=== PATIENT | female | born 1975 | race African-American/Black ===

== ENCOUNTER → 2017-11-30 | Day surgery (SDC) | payer OTHER ==
--- NOTE | 2017-12-02 09:14 | PATH ---
Surgical Pathology Report Patient Name: GONZALO FARIAS [facility]. Rec. #: [id number] /Age/Gender: 1975 (Age: 42) / F Account: [id number] Location: [facility] Taken: 11/30/2017 Received: 11/30/2017 Reported: 12/02/2017 Physicians: Hector Pérez M.D. Specimen(s) Received RIGHT BREAST 12:00 0.4CM Clinical History Nonpalpable lesion Ultrasound findings: Suspicious Final Diagnosis 0.4 CM LESION IN RIGHT BREAST 12:00 POSITION, ULTRASOUND GUIDED CORE BIOPSY: BREAST TISSUE WITH STROMAL FIBROSIS. Electronically Signed Sang Morrissey M.D. Gross Description Received in formalin labeled "right 12:00," are 6 pascual-yellow, cylindrical portions of fibroadipose tissue ranging from 0.2-1.7 cm in length and averaging 0.1 cm in diameter. The specimens are submitted in toto in one cassette. Time to formalin fixation: Less than one minute Total formalin fixation time: Approximately 7 hours. /11/30/2017 saudi/11/30/2017
== END | disposition home or self-care (01) ==
LOC: JRADUS-SUR 09:39
PROVIDERS: ATTEND Obstetrics & Gynecology
PROC: 0HBT3ZX Excision of Right Breast, Percutaneous Approach, Diagnostic (ICD-10-PCS; principal; 2017-11-30)
DX: N60.31 Fibrosclerosis of right breast (principal)
CPT/HCPCS: 19083; 87899; 88305-TC; A4648

== ENCOUNTER 2019-05-13 23:44 | Emergency (ER) | payer OTHER ==
[2019-05-13 23:55] VITALS: BP 116/74; PULSE 52; TEMP 97.8; BMI 26.6
[2019-05-14 01:58] LABS: HEMATOCRIT 35.3 % (32.4-45.2); HEMOGLOBIN 11.6 GM/dL (10.7-15.3); MCH 24.4 pg (25.7-33.7); MCHC 32.8 g/dl (32.0-36.0); MEAN CELL VOLUME 74.3 fl (80-96); MEAN PLT VOLUME 7.7 fl (7.5-11.1); PLATELET COUNT 387 K/MM3 (134-434); RBC 4.75 M/mm3 (3.60-5.2); RDW 18.4 % (11.6-15.6); WHITE BLOOD COUNT 5.3 K/mm3 (4.0-10.0)
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
[2019-05-14 02:31] LABS: BILIRUBIN,TOTAL 0.3 mg/dL (0.2-1); BLOOD UREA NITROGEN 8.6 mg/dL (7-18); CALCIUM 9.4 mg/dL (8.5-10.1); CREATININE 0.5 mg/dL (0.55-1.3); POTASSIUM 4.3 mmol/L (3.5-5.1)
--- NOTE | 2019-05-14 02:35 | PDOC ---
History of Present Illness - General Chief Complaint: Alcohol intoxication Stated Complaint: INTOX Time Seen by Provider: 05/14/19 00:25 History Source: Patient Exam Limitations: No Limitations - History of Present Illness Initial Comments: 44 yo F with a hx of HTN presents to the emergency department with alcohol intoxication. Per triage summary, the patient was brought in by the cabinet mounter because of concerns she was too drunk. The patient was evaluated. Per the patient, she was drinking with her friends to celebrate her friend's birthday. She states she has "a few shots of vodka". She is alert and oriented x3 and denies trauma prior to presentation while drinking. Currently has no symptomatic complaint. Denies the following: fevers, chills, SOB, chest pain, nausea, vomiting, dysuria, hematuria, diarrhea, hematochezia, headache, visual disturbance, and leg pain/swelling. Past History - Past Medical History Allergies/Adverse Reactions: Allergies Allergy/AdvReac Type Severity Reaction Status Date / Time No Known Allergies Allergy Verified 05/13/19 23:55 Home Medications: Ambulatory Orders Amlodipine Besylate/Benazepril [Lotrel 5-40 mg Capsule] 1 each PO DAILY Levothyroxine [Synthroid -] 125 mcg PO DAILY 05/14/16 Cholecalciferol (Vitamin D3) [Vitamin D3 -] 400 unit PO WEEKLY 05/15/16 Iron 18 mg PO DAILY 05/15/16 Anemia: No Asthma: No Cancer: No Cardiac Disorders: No CVA: No COPD: No CHF: No Dementia: No Diabetes: No GI Disorders: No Disorders: No HTN: Yes Hypercholesterolemia: No Liver Disease: No Seizures: No Thyroid Disease: Yes - Psycho Social/Smoking Cessation Hx Smoking History: Unknown if ever smoked Have you smoked in the past 12 months: No Number of Cigarettes Smoked Daily: 2 Information on smoking cessation initiated: No 'Breaking Loose' booklet given: 05/14/16 Hx Alcohol Use: No Drug/Substance Use Hx: Yes Substance Use Type: Alcohol Review of Systems - Review of Systems Able to Perform ROS?: Yes Is the patient limited Persian proficient: No Constitutional: No: Chills, Diaphoresis, Fever, Weakness HEENTM: No: Eye Pain, Ear Pain, Nose Pain, Throat Pain, Mouth Pain Respiratory: No: Cough, Shortness of Breath, Hemoptysis Cardiac (ROS): No: Chest Pain, Lightheadedness, Palpitations, Syncope, Chest Tightness ABD/GI: No: Constipated, Diarrhea, Nausea, Rectal Bleeding, Vomiting, Tarry Stools : No: Dysuria, Flank Pain, Hematuria Musculoskeletal: No: Back Pain, Joint Pain, Neck Pain Integumentary: No: Bruising, Erythema, Rash Neurological: No: Headache, Numbness, Tingling, Tremors Endocrine: No: Unexplained Weight Gain, Unexplained Weight Loss Hematologic/Lymphatic: No: Anemia *Physical Exam - Vital Signs Last Vital Signs Temp Pulse Resp BP Pulse Ox 97.8 F 52 L 16 116/74 99 05/13/19 23:52 05/13/19 23:52 05/13/19 23:52 05/13/19 23:52 05/13/19 23:52 - Physical Exam General Appearance: Yes: Nourished, Appropriately Dressed, Alcohol on Breath, Intoxicated. No: Apparent Distress HEENT: positive: EOMI, DEJA, Normal ENT Inspection, Normal Voice, Symmetrical, TMs Normal, Pharynx Normal, Hearing Grossly Normal. negative: Pale Conjunctivae , Scleral Icterus (R), Scleral Icterus (L), Muffled/Hoarse voice, Pharyngeal Erythema, Tonsillar Exudate, Excessive drooling Neck: positive: Trachea midline, Supple. negative: Tender, Lymphadenopathy (R) , Lymphadenopathy (L), Tender lateral, Tender midline Respiratory/Chest: positive: Lungs Clear, Normal Breath Sounds. negative: Chest Tender, Respiratory Distress, Accessory Muscle Use, Crackles, Rales, Rhonchi, Stridor, Wheezing, Hyperresonant Cardiovascular: positive: Regular Rhythm, Regular Rate, S1, S2. negative: Systolic Murmur Gastrointestinal/Abdominal: positive: Normal Bowel Sounds, Flat, Soft. negative : Tender, Distended, Guarding, Rebound Lymphatic: negative: Adenopathy Musculoskeletal: positive: Normal Inspection. negative: CVA Tenderness, Vertebral Tenderness Extremity: positive: Normal Capillary Refill, Normal Inspection, Normal Range of Motion. negative: Tender, Swelling, Calf Tenderness Integumentary: positive: Normal Color, Dry, Warm. negative: Swelling, Ecchymosis Neurologic: positive: salvage cutter II-XII NML intact, Fully Oriented, Alert, Normal Mood/ Affect, Normal Response, Motor Strength 5/5. negative: EOM Palsy, Facial Droop , Sensory Deficit ED Treatment Course - LABORATORY CBC & Chemistry Diagram: 05/14/19 01:37 05/14/19 01:37 - ADDITIONAL ORDERS Additional order review: Laboratory Results 05/14/19 05/14/19 05/14/19 01:37 01:37 01:37 Sodium 139 Potassium 4.3 Chloride 104 Carbon Dioxide 27 Anion Gap 9 BUN 8.6 Creatinine 0.5 L Est GFR (CKD-EPI)AfAm 136.42 Est GFR (CKD-EPI)NonAf 117.71 Random Glucose 99 Calcium 9.4 Total Bilirubin 0.3 AST 20 ALT 25 Alkaline Phosphatase 72 Total Protein 8.0 Albumin 4.0 Serum , Qual Negative Alcohol, Quantitative 223.8 H 05/14/19 01:37 RBC 4.75 MCV 74.3 L MCHC 32.8 RDW 18.4 H MPV 7.7 Medical Decision Making - Medical Decision Making 44 yo F with a hx of HTN presents to the emergency department with alcohol intoxication. Per triage summary, the patient was brought in by the cabinet mounter because of concerns she was too drunk. Initial vitals. Initial Vital Signs Temp Pulse Resp BP Pulse Ox 97.8 F 52 L 16 116/74 99 05/13/19 23:52 05/13/19 23:52 05/13/19 23:52 05/13/19 23:52 05/13/19 23:52 Work up: ddx: patient alcohol intoxicated. will obtain basic labs and alcohol level. no concerns for trauma; physical exam benign. Laboratory Tests 05/14/19 05/14/19 05/14/19 01:37 01:37 01:37 WBC 5.3 RBC 4.75 Hgb 11.6 Hct 35.3 MCV 74.3 L MCH 24.4 L D MCHC 32.8 RDW 18.4 H Plt Count 387 D MPV 7.7 Sodium 139 Potassium 4.3 Chloride 104 Carbon Dioxide 27 Anion Gap 9 BUN 8.6 Creatinine 0.5 L Est GFR (CKD-EPI)AfAm 136.42 Est GFR (CKD-EPI)NonAf 117.71 Random Glucose 99 Calcium 9.4 Total Bilirubin 0.3 AST 20 ALT 25 Alkaline Phosphatase 72 Total Protein 8.0 Albumin 4.0 Serum , Qual Alcohol, Quantitative 223.8 H 12/07/19 01:37 WBC RBC Hgb Hct MCV MCH MCHC RDW Plt Count MPV Sodium Potassium Chloride Carbon Dioxide Anion Gap BUN Creatinine Est GFR (CKD-EPI)AfAm Est GFR (CKD-EPI)NonAf Random Glucose Calcium Total Bilirubin AST ALT Alkaline Phosphatase Total Protein Albumin Serum , Qual Negative Alcohol, Quantitative Patient was reassessed and deemed to be clinically sober for discharge. Patient was able to ambulate on her own volition. Dispo: Discharge Discharge - Discharge Information Problems reviewed: Yes Clinical Impression/Diagnosis: Acute alcohol intoxication Disposition: HOME - Follow up/Referral - Patient Discharge Instructions - Post Discharge Activity
== END 2019-05-14 02:36 | disposition home or self-care (01) ==
LOC: JER 23:44
DX: F10.120 Alcohol abuse with intoxication, uncomplicated (principal); Y90.7 Blood alcohol level of 200-239 mg/100 ml
CPT/HCPCS: 36415; 80053; 80307; 84703; 85027; 99281-25

== ENCOUNTER 2020-02-21 20:58 | Emergency (ER) | payer OTHER ==
[2020-02-21 21:28] VITALS: BP 163/82; PULSE 59; TEMP 98.8; BMI 23.0
--- NOTE | 2020-02-21 22:46 | PDOC ---
*Physical Exam - Vital Signs Last Vital Signs Temp Pulse Resp BP Pulse Ox 98.8 F 59 L 20 163/82 99 02/21/20 21:20 02/21/20 21:20 02/21/20 21:20 02/21/20 21:20 02/21/20 21:20 Medical Decision Making - Medical Decision Making 02/21/20 22:46 Patient seen by the advanced practice provider under my supervision. Ancillary testing reviewed as necessary. I agree with plan as outlined by the advanced practice provider. Discharge - Follow up/Referral Referrals: Mahendra Majano MD [Primary Care Provider] - - Patient Discharge Instructions - Post Discharge Activity
--- NOTE | 2020-02-21 23:14 | PDOC ---
History of Present Illness - General Chief Complaint: Blood Pressure Problem Stated Complaint: BLOOD PRESSURE PROBLEM Time Seen by Provider: 02/21/20 22:41 - History of Present Illness Initial Comments: 02/21/20 23:15 44 year old female c/o elevated bloood pressure reading after use of tetracycline for acne. Patient reports that she has been checking her blood pressure constantly. Patient is currently on Norvasc patient was seen for same complaint by Dr. Dexter and was started on spironolactone. Patient reports no significant change in her blood pressure she was unable to reach her PCP due to blood pressure reading 160s over 90. Denies dizziness, chest pain, nausea, vomiting, abdominal pain. Patient reports slight headache 02/22/20 04:46 Past History - Medical History Allergies/Adverse Reactions: Allergies Allergy/AdvReac Type Severity Reaction Status Date / Time No Known Allergies Allergy Verified 05/13/19 23:55 Home Medications: Ambulatory Orders Amlodipine Besylate/Benazepril [Lotrel 5-40 mg Capsule] 1 each PO DAILY 05/14/16 Levothyroxine [Synthroid -] 125 mcg PO DAILY 05/14/16 Cholecalciferol (Vitamin D3) [Vitamin D3 -] 400 unit PO WEEKLY 05/15/16 Iron 18 mg PO DAILY 05/15/16 Anemia: No Asthma: No Cancer: No Cardiac Disorders: No CVA: No COPD: No CHF: No DVT: No Dementia: No Diabetes: No Dialysis: No GI Disorders: No Disorders: No HTN: Yes Hypercholesterolemia: No Liver Disease: No Seizures: No Thyroid Disease: Yes - Reproductive History Is Patient Now?: No - Psycho-Social/Smoking History Smoking History: Current some day smoker Have you smoked in the past 12 months: No Number of Cigarettes Smoked Daily: 2 Information on smoking cessation initiated: No 'Breaking Loose' booklet given: 05/14/16 - Substance Abuse Hx (Audit-C & DAST Scrn) How often the patient has a drink containing alcohol: Monthly or less Score: In Men: 4 or > Positive; In Women: 3 or > Positive: 1 Screen Result (Pos requires Nsg. Audit-10AR): Negative Review of Systems - Review of Systems Able to Perform ROS?: Yes Is the patient limited Peruvian proficient: No Constitutional: No: Symptoms Reported, See HPI, Chills, Diaphoresis, Fever, Loss of Appetite, Malaise, Night Sweats, Weakness, Weight Stable, Unintentional Wgt. Loss, Unexplained wgt Loss, Other Neurological: Yes: Headache. No: Symptoms reported, See HPI, Numbness, Paresthesia, Pre-Existing Deficit, Seizure, Tingling, Tremors, Weakness, Unsteady Gait, Ataxia, Dizziness, Other *Physical Exam - Vital Signs Last Vital Signs Temp Pulse Resp BP Pulse Ox 98.8 F 59 L 20 163/82 99 02/21/20 21:20 02/21/20 21:20 02/21/20 21:20 02/21/20 21:20 02/21/20 21:20 - Physical Exam General Appearance: Yes: Appropriately Dressed Respiratory/Chest: positive: Lungs Clear, Normal Breath Sounds Gastrointestinal/Abdominal: positive: Normal Bowel Sounds, Soft. negative: Tender Extremity: positive: Normal Capillary Refill, Normal Inspection, Normal Range of Motion Integumentary: positive: Normal Color, Dry, Warm Neurologic: positive: religious educator II-XII NML intact, Fully Oriented, Alert, Normal Mood/Affect, Normal Response, Motor Strength 5/5 Medical Decision Making - Medical Decision Making Hypertension P: Blood pressure diary recommended Prompt PCP follow-up recommended. Patient reports that she will be following up with Dr. Majano tomorrow.strict return precautions also reviewed with patientstill Discharge - Discharge Information Problems reviewed: Yes Clinical Impression/Diagnosis: Hypertension Qualifiers: Hypertension type: essential hypertension Qualified Code(s): I10 - Essential (primary) hypertension Condition: Stable Disposition: HOME - Follow up/Referral Referrals: Mahendra Majano MD [Primary Care Provider] - Call tomorrow - Patient Discharge Instructions Patient Printed Discharge Instructions: DI for High Blood Pressure Additional Instructions: Continue writing your blood pressure readings at home. Continue your high antihypertensive medication at home Follow-up with your primary care doctor tomorrow. Return to the emergency room for any worsening symptoms worsening headache worsening chest pain - Post Discharge Activity
== END 2020-02-21 23:23 | disposition home or self-care (01) ==
LOC: JER 20:58
DX: I10 Essential (primary) hypertension (principal)
CPT/HCPCS: 99282-25

== ENCOUNTER → 2020-08-30 | Day surgery (SDC) | payer OTHER | END | disposition home or self-care (01) | LOC: FMAMMOTONE 10:28 | PROVIDERS: ATTEND Obstetrics & Gynecology | PROC: 0H9T3ZX Drainage of Right Breast, Percutaneous Approach, Diagnostic (ICD-10-PCS; principal; 2020-08-30) | DX: N60.91 Unspecified benign mammary dysplasia of right breast (principal); N60.81 Other benign mammary dysplasias of right breast | CPT/HCPCS: 19081; 76098-TC-FY; 88305-TC ==

== ENCOUNTER 2023-06-11 04:23 | Inpatient (IN) | payer OTHER ==
[2023-06-03 12:57] VITALS: BMI 23.2
[2023-06-11] MEDS ORDERED: ceFAZolin SODIUM 1 GM VIAL ONE ×2 (06:11→07:56)
[2023-06-11] MEDS ORDERED: CEFAZOLIN 2 GM in DEXTROSE 5%-WATER 100 ML IVPB ONE (06:14)
[2023-06-11] MEDS ORDERED: PHENAZOPYRIDINE HCL 100 MG TABLET (FP) PO ONE (06:14)
[2023-06-11] MEDS ORDERED: TRANEXAMIC ACID 1000 MG/10 ML VIAL IVPUSH ONE (06:14)
[2023-06-11] MEDS ORDERED: ACETAMINOPHEN 500 MG TABLET (FP) PO ONE (06:14)
[2023-06-11] MEDS ORDERED: ONDANSETRON 4 MG/2 ML VIAL IVPUSH PRN ×2 (07:51→10:22)
[2023-06-11] MEDS ORDERED: PROMETHAZINE HCL 25 MG/1 ML VIAL IVPB PRN (07:51)
[2023-06-11] MEDS ORDERED: HYDROmorphone HCl 2 MG/ML VIAL ONE (07:55)
[2023-06-11] MEDS ORDERED: SUGAMMADEX SODIUM 200 MG/2 ML VIAL ONE (07:55)
[2023-06-11] MEDS ORDERED: ROCURONIUM BROMIDE 50 MG/5 ML SYRINGE ONE (07:55)
[2023-06-11] MEDS ORDERED: MIDAZOLAM HCL 2 MG/2 ML SINGLE DOSE VIAL ONE (07:55)
[2023-06-11] MEDS ORDERED: PROPOFOL 20 ML ONE (07:55)
[2023-06-11] MEDS ORDERED: LIDOCAINE HCL/PF 2% SDV 5ML VIAL ONE (07:56)
[2023-06-11] MEDS ORDERED: DEXAMETHASONE SOD PHOSPHATE 4 MG/1 ML VIAL ONE (07:56)
[2023-06-11] MEDS ORDERED: HEPARIN NA (PORCINE) 5,000 UNITS/ML 1ML VIAL ONE (08:06)
[2023-06-11] MEDS ORDERED: TRANEXAMIC ACID 1000 MG/10 ML VIAL ONE (08:48)
[2023-06-11] MEDS ORDERED: ceFAZolin SODIUM 1 GM VIAL IVPB ONE (08:50)
[2023-06-11] MEDS ORDERED: BUPIVACAINE HCL/PF 0.5% (5MG/ML) 10 ML VIAL IJ ONE (08:56)
[2023-06-11] MEDS ORDERED: KETOROLAC TROMETHAMINE 30 MG/1 ML VIAL ONE (08:57)
[2023-06-11] MEDS ORDERED: ACETAMINOPHEN INJECTION 100 ML IVPB ONE (08:57)
[2023-06-11] MEDS ORDERED: SEVOFLURANE 250 ML BTL ONE (08:57)
[2023-06-11] MEDS ORDERED: BISACODYL 5 MG TABLET.DR (FP) PO PRN (10:22)
[2023-06-11] MEDS ORDERED: DOCUSATE SODIUM 100 MG CAPSULE (FP) PO PRN (10:22)
[2023-06-11] MEDS ORDERED: HYDROmorphone *PCA* 10MG/50ML DISP.SYRIN ONE (10:39)
[2023-06-11] MEDS: HYDROmorphone *PCA* 10MG/50ML DISP.SYRIN PCA SCH (10:59)
[2023-06-11] MEDS: LACTATED RINGERS SOLUTION 1,000 ML IV SCH ×2 (12:45→20:08)
[2023-06-11] MEDS: ACETAMINOPHEN 1000 MG/100 ML BAG IVPB SCH (17:48)
[2023-06-11] MEDS ORDERED: CEFAZOLIN 1 GM/D5W 1 GM/50 ML BAG IVPB SCH (18:00)
[2023-06-11] MEDS: CEFAZOLIN 1 GM in DEXTROSE 5%-WATER 100 ML IVPB SCH (18:18)
[2023-06-11 19:52] LABS: HEMATOCRIT 28.1 % (32.4-45.2); HEMOGLOBIN 8.9 GM/dL (10.7-15.3); MCH 20.6 pg (25.7-33.7); MCHC 31.8 g/dl (32.0-36.0); MEAN CELL VOLUME 64.8 fl (80-96); MEAN PLT VOLUME 8.4 fl (7.5-11.1); PLATELET COUNT 317 10^3/uL (134-434); RBC 4.34 M/mm3 (3.60-5.2); RDW 19.7 % (11.6-15.6); WHITE BLOOD COUNT 12.9 K/mm3 (4.0-10.0)
[2023-06-11 20:03] LABS: POTASSIUM 3.9 mmol/L (3.5-5.1)
[2023-06-11 20:06] LABS: BLOOD UREA NITROGEN 6.1 mg/dL (7-18)
[2023-06-11 20:10] LABS: CREATININE 0.8 mg/dL (0.55-1.3)
[2023-06-11] MEDS: IBUPROFEN 800 MG/8 ML IJ IVPB SCH (20:47)
[2023-06-12] MEDS: CEFAZOLIN 1 GM in DEXTROSE 5%-WATER 100 ML IVPB SCH ×2 (01:39→10:04)
[2023-06-12] MEDS: ACETAMINOPHEN 1000 MG/100 ML BAG IVPB SCH ×2 (01:43→11:35)
[2023-06-12] MEDS: IBUPROFEN 800 MG/8 ML IJ IVPB SCH ×2 (02:31→11:34)
[2023-06-12] MEDS: LACTATED RINGERS SOLUTION 1,000 ML IV SCH ×2 (02:32→11:32)
[2023-06-12 06:18] LABS: HEMATOCRIT 26.8 % (32.4-45.2); HEMOGLOBIN 8.4 GM/dL (10.7-15.3); MCH 20.3 pg (25.7-33.7); MCHC 31.2 g/dl (32.0-36.0); MEAN CELL VOLUME 65.2 fl (80-96); MEAN PLT VOLUME 7.9 fl (7.5-11.1); PLATELET COUNT 292 10^3/uL (134-434); RBC 4.11 M/mm3 (3.60-5.2); RDW 20.1 % (11.6-15.6); WHITE BLOOD COUNT 11.5 K/mm3 (4.0-10.0)
[2023-06-12 06:35] LABS: POTASSIUM 3.8 mmol/L (3.5-5.1)
[2023-06-12 06:37] LABS: BLOOD UREA NITROGEN 6.2 mg/dL (7-18); CALCIUM 9.4 mg/dL (8.5-10.1)
[2023-06-12 06:41] LABS: CREATININE 0.5 mg/dL (0.55-1.3)
[2023-06-12] MEDS: amLODIPine BESYLATE 10 MG TABLET (FP) PO SCH (09:50)
[2023-06-12] MEDS: LEVOTHYROXINE NA 125 MCG TABLET (FP) PO SCH (09:52)
[2023-06-12] MEDS: LISINOPRIL 20 MG TABLET PO SCH (09:52)
[2023-06-12] MEDS: ENOXAPARIN NA (PORCINE) 40 MG/0.4 ML DISP.SYRIN SQ SCH (10:03)
[2023-06-12] MEDS: FERROUS GLUCONATE 324 MG TAB (FP) PO SCH (11:34)
[2023-06-12] MEDS ORDERED: oxyCODONE HCL 5 MG TABLET PO PRN ×2 (11:56)
[2023-06-12] MEDS: HYDROmorphone *PCA* 10MG/50ML DISP.SYRIN PCA SCH (12:11)
[2023-06-12] MEDS ORDERED: ACETAMINOPHEN 500 MG TABLET (FP) PO PRN (18:00)
[2023-06-12] MEDS: IBUPROFEN 600 MG TABLET (FP) PO PRN (18:14)
[2023-06-12] MEDS: SIMETHICONE 80 MG TAB.CHEW (FP) PO PRN (18:16)
[2023-06-12 23:05] VITALS: RESP 18
[2023-06-13] MEDS: SIMETHICONE 80 MG TAB.CHEW (FP) PO PRN (08:55)
[2023-06-13] MEDS: IBUPROFEN 600 MG TABLET (FP) PO PRN (08:55)
[2023-06-13] MEDS: FERROUS GLUCONATE 324 MG TAB (FP) PO SCH (09:02)
[2023-06-13] MEDS: ENOXAPARIN NA (PORCINE) 40 MG/0.4 ML DISP.SYRIN SQ SCH (09:04)
[2023-06-13 09:15] VITALS: BP 130/79; PULSE 66; TEMP 98.2
[2023-06-13] MEDS: amLODIPine BESYLATE 10 MG TABLET (FP) PO SCH (10:07)
[2023-06-13] MEDS: LEVOTHYROXINE NA 125 MCG TABLET (FP) PO SCH (10:07)
[2023-06-13] MEDS: LISINOPRIL 20 MG TABLET PO SCH (10:07)
== END 2023-06-13 11:00 | disposition home or self-care (01) | DRG 743 ==
LOC: J2C 04:23 → J3W 12:40
PROVIDERS: ADMIT Obstetrics & Gynecology; ATTEND Obstetrics & Gynecology
PROC: 0UT70ZZ Resection of Bilateral Fallopian Tubes, Open Approach (ICD-10-PCS; 2023-06-11)
PROC: 0UT90ZZ Resection of Uterus, Open Approach (ICD-10-PCS; principal; 2023-06-11 07:30)
DX: D25.1 Intramural leiomyoma of uterus (principal); D25.2 Subserosal leiomyoma of uterus; N92.0 Excessive and frequent menstruation with regular cycle
CPT/HCPCS: 36415; 80048; 81025; 85027; 86850; 86900; 86901; 87635; 88307-TC; 88341-TC; 94010; 94760; J1644

== ENCOUNTER 2024-05-12 12:39 | Day surgery (SDC) | payer OTHER ==
[2024-05-10 14:40] VITALS: BMI 23.8
[2024-05-12] MEDS ORDERED: BUPIVACAINE HCL/PF 0.5% (5 MG/ML) 30 ML VIAL IJ ONE (15:39)
[2024-05-12] MEDS ORDERED: MIDAZOLAM HCL 2 MG/2 ML SINGLE DOSE VIAL ONE (15:39)
[2024-05-12] MEDS ORDERED: DEXAMETHASONE SOD PHOSPHATE 10 MG/1 ML VIAL ONE (15:40)
[2024-05-12] MEDS ORDERED: PROPOFOL 20 ML ONE ×2 (15:53→16:06)
[2024-05-12] MEDS ORDERED: ceFAZolin SODIUM 1 GM VIAL ONE (16:19)
[2024-05-12] MEDS ORDERED: ONDANSETRON 4 MG/2 ML VIAL ONE (16:30)
[2024-05-12] MEDS ORDERED: DEXAMETHASONE SOD PHOSPHATE 4 MG/1 ML VIAL ONE (16:30)
[2024-05-12] MEDS ORDERED: ACETAMINOPHEN INJECTION 100 ML ONE (16:43)
[2024-05-12] MEDS ORDERED: oxyCODONE HCL 5 MG TABLET PO PRN (17:35)
[2024-05-12] MEDS ORDERED: ACETAMINOPHEN 1000 MG/100 ML BAG IVPB ONE (17:40)
[2024-05-12] MEDS ORDERED: LACTATED RINGERS SOLUTION 1,000 ML IV SCH (17:45)
[2024-05-12 18:30] VITALS: PULSE 74; RESP 18; TEMP 97.9
[2024-05-12 18:49] VITALS: BP 126/89
== END 2024-05-12 18:49 | disposition home or self-care (01) ==
LOC: FASU 12:39
PROVIDERS: ATTEND Orthopaedic Surgery Sports Medicine
PROC: 0PSJ04Z Reposition Left Radius with Internal Fixation Device, Open Approach (ICD-10-PCS; principal; 2024-05-12 16:22)
DX: S52.502A Unspecified fracture of the lower end of left radius, initial encounter for closed fracture (principal); X58.XXXA Exposure to other specified factors, initial encounter; Y93.9 Activity, unspecified; Y92.9 Unspecified place or not applicable
CPT/HCPCS: 25609; C1713; 73110-TC-LT-FY; 94760; J0131; J1100